=== PATIENT | male | born 1940 | race Caucasian/White ===

== ENCOUNTER → 2016-08-07 | Day surgery (SDC) | payer MEDICARE, OTHER ==
[2016-08-07 07:48] LABS: INR 1.06 (0.9-1.2); PROTHROMBIN TIME 13.4 SECONDS (11.7-14.0); PTT 30.3 SECONDS (23.2-31.4)
== END | disposition home or self-care (01) ==
LOC: FAS 07-24 09:30
PROVIDERS: Anesthesiology
DX: I85.00 Esophageal varices without bleeding (principal); D64.9 Anemia, unspecified; M19.90 Unspecified osteoarthritis, unspecified site; K31.819 Angiodysplasia of stomach and duodenum without bleeding; I10 Essential (primary) hypertension; I48.91 Unspecified atrial fibrillation; Z86.73 Personal history of transient ischemic attack (TIA), and cerebral infarction without residual deficits; Z86.010 Personal history of colon polyps; Z79.01 Long term (current) use of anticoagulants; Z79.899 Other long term (current) drug therapy; Z87.442 Personal history of urinary calculi; Z90.49 Acquired absence of other specified parts of digestive tract; Z98.890 Other specified postprocedural states; Z87.891 Personal history of nicotine dependence
CPT/HCPCS: 36415; 85610; 85730; J2704

== ENCOUNTER 2020-05-27 12:35 | Emergency (ER) | payer MEDICARE, OTHER ==
[2020-05-27 14:30] LABS: BASOPHIL 0.4 % (0-2); EOSINOPHIL 4.1 % (0-7); HCT 41.8 % (42.0-52.0); HGB 13.2 g/dl (13.2-18.0); LYMPHOCYTE 19.3 % (15-48); MCH 26.7 pg (25.0-31.0); MCHC 31.6 g/dL (32.0-36.0); MCV 84.4 fL (78.0-100.0); NEUTROPHIL 59.8 % (41-80); NRBC 0; PLT 307 K/uL (150-400); RBC 4.95 M/uL (4.70-6.00); RDW 17.4 % (11.5-14.0); WBC 12.4 K/uL (4.0-10.5)
[2020-05-27 14:41] LABS: INR 2.34 (0.9-1.2); PROTHROMBIN TIME 24.4 SECONDS (11.4-13.6); PTT 49.4 SECONDS (22.2-34.7)
[2020-05-27 14:48] LABS: ALBUMIN 3.2 g/dL (3.4-5.0); BILIRUBIN - TOTAL 1.1 mg/dL (0.2-1.0); BUN/CREAT RATIO (CALC) 18.8 RATIO; CREATININE 0.8 mg/dL (0.67-1.17); GLOBULIN (CALCULATION) 4.4 g/dL; TOTAL PROTEIN 7.6 g/dL (6.4-8.2)
[2020-05-27] MEDS ORDERED: NEURONTIN100 MG PO (16:25)
[2020-05-27] MEDS ORDERED: PREDNISONE20 MG PO (16:25)
== END 2020-05-27 17:05 | disposition home or self-care (01) ==
LOC: FER 12:35
PROVIDERS: Emergency Medicine
DX: M47.26 Other spondylosis with radiculopathy, lumbar region (principal); Z79.01 Long term (current) use of anticoagulants; Z79.84 Long term (current) use of oral hypoglycemic drugs; Z79.899 Other long term (current) drug therapy
CPT/HCPCS: 36415; 72131; 73502; 80053; 85025; 85610; 85730; J1170; J2405